=== PATIENT | female | born 1955 | race Caucasian/White ===

== ENCOUNTER 2017-02-02 18:02 | Emergency (ER) | payer OTHER ==
--- NOTE | ~2017-02-02 | CT71 ---
[facility] A Service of [facility] RADIOLOGY TEXT RESULTS PATIENT: BLANCHE LARSON LOCATION: SED : 57 UNIT #: [id number] AGE: [address]: Maru Bryant MD SEX: F ORDER DR: [id number] [address] [address] [id number] E MR#: [id number] Acc #: [id number] NAME: BLANCHE LARSON : 1955 SEX: F STUDY DATE/TIME: 02/02/2017 20:07 UNIT: SED ROOM: STUDY DESCRIPTION: CT Head Wo Contrast Attending Physician: Maru Bryant M.D. Ordering Physician: Maru Braynt M.D. MEDICAL IMAGING REPORT This report is preliminary unless electronic signature is present. EXAM CT scan of the head without contrast. INDICATIONS Headache and hypertension for a week. TECHNIQUE Unenhanced images were obtained through the brain. This CT exam was performed with one or more of the following radiation dose reduction techniques: automatic exposure control, adjustment of mA and/or kV according to patient size, and iterative reconstruction. FINDINGS The ventricles and subacromial spaces are normal. There is a slightly hyperdense mass that appears to be arising from the falx measuring 2 cm in diameter. This is consistent with a meningioma. It is projected to the left side. There is no surrounding edema. There are at least 2 or 3 small areas of decreased density in the left basal ganglia and rust radiata consistent with small lacunar infarcts measuring 5 mm in diameter. IMPRESSION 1. There is a mass in the anterior brain projecting to the left off the falx. It is slightly hyperdense consistent with minimal calcification, and it is consistent with a meningioma given its broad base against the dural surface. If this has not been worked up before, it may need further evaluation either with follow up or MRI. 2. There is small areas of lacunar infarcts in left basal ganglia and rust radiata. 3. There is no evidence of acute abnormality. 4. The meningioma does not show any edema around it. [facility] A Service of [facility] RADIOLOGY TEXT RESULTS PATIENT: BLANCHE LARSON LOCATION: [facility] [place] : 57 UNIT #: [id number] AGE: [address]: Maru Bryant MD SEX: F ORDER DR: Dictated by... Jaskaran Perez M.D. THIS IS AN ELECTRONICALLY VERIFIED REPORT Jaskaran Perez M.D. at 02/03/2017 7:58 PM JET/hyun TD: 02/03/2017 17:12 JOB #: [id number] MEDICAL IMAGING REPORT Page 1 of 1
[2017-02-02] MEDS ORDERED: METOPROLOL PO (18:34)
[2017-02-02] MEDS ORDERED: HCTZ PO (18:35)
[2017-02-02] MEDS ORDERED: QUINAPRIL PO (18:35)
[2017-02-02] MEDS ORDERED: PEPCID PO (18:36)
[2017-02-02 20:39] LABS: BASOPHIL# 0.1 X10e3 (0-0.3); EOSINOPHIL# 0.1 X10e3 (0-0.7); EOSINOPHIL% 0.6 % (0.0-7.0); HEMATOCRIT 42.7 % (35.0-45.0); HEMOGLOBIN 14.8 gm/dL (12.0-16.0); LYMPHOCYTE# 2.3 X10e3 (1.0-3.5); LYMPHOCYTE% 21.7 % (17.0-45.0); MEAN CELL VOLUME 84.1 FL (83-96); MEAN CORPUSCULAR HEMOGLOBIN 29.2 PG (28-34); MEAN CORPUSCULAR HGB CONC 34.7 g/dL (30-36); MEAN PLATELET VOLUME 8.7 FL (6.5-11.5); MONOCYTE% 9.7 % (3.0-12.0); NEUTROPHIL# 7.2 X10e3 (1.5-7.1); PLATELET COUNT 268 X10e3 (140-420); RED BLOOD COUNT 5.08 X10e (3.90-5.30); RED CELL DISTRIBUTION WIDTH 13.5 % (11.0-15.5); WHITE BLOOD COUNT 10.7 X10e3 (4.0-10.5)
[2017-02-02 20:40] LABS: DIFF IND NO
[2017-02-02 20:44] LABS: INR 1.1; PROTHROMBIN TIME (PATIENT) 12.9 SECONDS (9.5-12.4)
[2017-02-02 20:51] LABS: PARTIAL THROMBOPLASTIN TIME 28.4 SECONDS (25.6-38.1)
[2017-02-02 21:01] LABS: ALBUMIN SERUM 4.4 g/dL (3.5-5.0); BILIRUBIN, DIRECT 0.1 mg/dL (0.0-0.2); BILIRUBIN,INDIRECT 0.8 mg/dL (0.0-0.9); BILIRUBIN,TOTAL 0.9 mg/dL (0.2-2.0); BUN/CREATININE RATIO 9.16; CALCIUM SERUM 9.6 mg/dL (8.4-10.2); CREATININE SERUM 1.2 mg/dL (0.6-1.4); GLOM FILT RATE Estimated 49.1 mL/min (>60); POTASSIUM 3.1 mmol/L (3.5-5.1); PROTEIN TOTAL SERUM 7.6 g/dL (6.0-8.3)
== END 2017-02-02 21:31 | disposition home or self-care (01) ==
LOC: SED 18:02
PROVIDERS: Student in an Organized Health Care Education/Training Program
DX: I10 Essential (primary) hypertension (principal); G93.9 Disorder of brain, unspecified; E87.1 Hypo-osmolality and hyponatremia; Z79.899 Other long term (current) drug therapy
CPT/HCPCS: 36415; 70450; 80048; 80076; 83880; 85025; 85610; 85730; 96374; 96375; 99284; C9113; J2405